=== PATIENT | female | born 1955 | race Caucasian/White ===

== ENCOUNTER → 2022-01-01 | Outpatient (CLI) | payer OTHER ==
[~2022-01-01] MED LIST: EPINEPHRIN0.3 MG/0.3 INJ; FLUTICASONE SPRAY; HYDROCHLOROTH12.5 MG PO; LIPITOR20 MG PO; LISINOPRIL10 MG PO; LOPRESSOR 25 MG25 MG PO; LORATADINE10 MG PO; LOW DOSE ASPIRI81 MG PO; PROVENTIL HFA6.7 GM INH; SINGULAIR10 MG PO
[2022-01-01 13:30] LABS: HEMOGLOBIN 12.3 gm/dl (12.3-15.3); RED BLOOD COUNT 4.35 M/UL (4.00-5.10); WHITE BLOOD COUNT 6.9 K/UL (4.5-11.0)
[2022-01-01 13:33] LABS: BUN/CREATININE RATIO 16 (0-10)
== END ==
LOC: OPSV2 11:00
PROVIDERS: Obstetrics & Gynecology
DX: Z01.818 Encounter for other preprocedural examination (principal); R87.613 High grade squamous intraepithelial lesion on cytologic smear of cervix (HGSIL)
CPT/HCPCS: 36415; 71046; 80053; 81001; 85025; 93005

== ENCOUNTER → 2022-01-10 | Day surgery (SDC) | payer OTHER | END | disposition home or self-care (01) | LOC: OR 05:34 | DX: N87.1 Moderate cervical dysplasia (principal); N87.0 Mild cervical dysplasia; E78.5 Hyperlipidemia, unspecified; I10 Essential (primary) hypertension; Z88.0 Allergy status to penicillin; Z79.82 Long term (current) use of aspirin; Z86.16 Personal history of COVID-19; Z20.822 Contact with and (suspected) exposure to COVID-19 | CPT/HCPCS: J1100; J1885; J2001; J2370; J2405; J2704; J2795; J3010; J7120 ==